=== PATIENT | female | born 1965 | race Caucasian/White ===

== ENCOUNTER → 2025-08-01 10:31 | Outpatient (REF) | payer OTHER, SELFPAY | LOC: HWRAD 10:31 | PROVIDERS: ATTENDING PHYSICIAN Hospitalist | DX: R93.89 Abnormal findings on diagnostic imaging of other specified body structures (principal); N84.0 Polyp of corpus uteri | CPT/HCPCS: 76830; 76856 ==

== ENCOUNTER 2025-09-03 06:22 | Day surgery (SDC) | payer OTHER, SELFPAY ==
[2025-08-28 09:00] LABS: Hematocrit 39.1 % (37.0-47.0); Hemoglobin 12.7 g/dL (12.0-16.0); Mean Corp Hgb Conc. 32.5 g/dL (33.0-37.0); Mean Corpuscular Volume 94.9 fL (81.0-99.0); Nucleated Red Blood Cells % 0 %; Platelet Count 376 10^3/uL (130-400); Red Cell Dist. Width 13.2 % (11.5-14.5)
[2025-08-28 09:57] LABS: Blood Urea Nitrogen 13 mg/dl (7-17); Calcium 9.5 mg/dl (8.4-10.2); Carbon Dioxide 32 mmol/L (22-30); Chloride 99 mmol/L (98-107); Glucose 83 mg/dl (70-99); Potassium 4.7 mmol/L (3.5-5.1); Sodium 137 mmol/L (135-145); eGFR > 60.00
[2025-08-28 14:37] VITALS: BMI 17.4
[2025-09-03] VITALS (8 sets, daily range): BP systolic 109–137; BP diastolic 69–77; BMI 17.0
--- NOTE | 2025-09-03 06:47 | HPS.HSE ---
Family Physician
-
Family Physician: Janel Mariano MD
Chief Complaint
-
hysteroscopy D&C
History of Present Illness
Patient is a 60yo who presents for hysteroscopy D&C with polypectomy. She was living in [facility] with her dad and going to a doctor in [facility]. She was taking HRT but was only using an estrogen patch and not taking the oral progesterone because it
caused acne. She was having a lot of bleeding and had an EMB that showed an endometrial polyp. She was supposed to get a hysteroscopy D&C with polypectomy but did not schedule due to cost. This all happened around March. She since moved to the area.
Patient saw Dr. Janel Mariano who ordered a repeat US because the US report is not legible in the transferred records. The patient is not taking HRT anymore.
PMHx: depression
Meds: venlafaxine, zolpidem, adderall
Surghx: appendectomy, D&Ex3
NKDA
Socialhx: occ etoh, denies tobacco or illicit drug use
Famhx: denies
OBHx: , ETOPx3, FT SVDx1
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
Medical History
Past Medical History
Past Medical History: Reports Psychiatric
Past Surgical History: Reports Appendectomy and Gynocological
Social History
Tobacco: Non-smoker
Alcohol: Occasional
Drug: None
Family History
Family History: Not pertinent
Allergies / Home Medications
Allergies reflects when Allergies were last updated in [facility].
Home Medications with original date entered in [facility]
Allergy/Medication List:
NKDA
Meds: venlafaxine 75mg qD, Wellbutrin XL 150mg qD
Review of Systems
-
A 12 point ROS was completed and negative except as noted: Yes
Physical Exam
Physical Exam
General: Well Developed and Well Nourished
HEENT: NormoCephalic
Respiratory: Non Labored Respirations
Cardiac: Regular Rhythm
Skin: Warm and Dry
Neuro: Awake and Alert
Psych: Calm
Laboratory Results
-
08/28/25 08:12
08/28/25 08:12
Impression/Plan
-
IMPRESSION:
Patient is a 60yo who presents for hysteroscopy D&C with polypectomy
PLAN:
- She had postmenopausal bleeding after taking unopposed estrogen. She had an EMB by a provider in [place] that showed an endometrial polyp. She was supposed to have hysteroscopy D&C with polypectomy but never did. She since moved to the area. She has
stopped taking HRT and is no longer taking unopposed estrogen. Her PMB has stopped
- Reviewed recommendation for hysteroscopy D&C with polypectomy. Risks, benefits and alternatives reviewed including bleeding, infection, damage to surrounding structures, uterine perforation and need for future surgeries. Consents signed. She was
consented for a blood transfusion in case of emergency. Aware there might not be a polyp on hysteroscopy but will do a D&C regardless
- Postop expectations and restrictions reviewed
--- NOTE | 2025-09-03 19:26 | OR.RPT ---
Operative Report
Operative Report
Procedure date: 09/03/2025
Preop diagnosis:
- Postmenopausal bleeding
- Endometrial polyp
Postop diagnosis
- Postmenopausal bleeding
Procedure
- Hysteroscopy, dilation and curettage
Surgeon: Claritza
Anesthesia: General
EBL: 5cc
Complications: none
Findings
- Normal appearing external genitalia
- Cervix without lesions or masses, retroverted uterus, no adnexal masses
- Hysteroscopic evaluation with bilateral tubal ostia visualized. Atrophic endometrium. No endometrial polyp.
Pathology: endometrial curettings
Indication:
Patient is a 60yo who presents for hysteroscopy D&C with polypectomy. She was living in [facility] with her dad and going to a doctor in [facility]. She was taking HRT but was only using an estrogen patch and not taking the oral progesterone because it
caused acne. She was having a lot of bleeding and had an EMB that showed an endometrial polyp. She was supposed to get a hysteroscopy D&C with polypectomy but did not schedule due to cost. This all happened around March. She since moved to the area.
The patient is not taking HRT anymore. Given endometrial polyp on endometrial biopsy, it was recommended to proceed with hysteroscopy, dilation and curettage with polypectomy. Risks, benefits and alternatives to the procedure were discussed and all
questions answered. Consents were signed.
Procedure:
Patient was taken to the operating room and placed under general anesthesia. She was placed in the dorsal lithotomy position with Damien type stirrups. She was prepped and draped in the normal sterile fashion. Bimanual exam revealed the
aforementioned findings. A Salazar retractor was placed in the anterior portion of the vagina and a Salazar retractor in the posterior aspect of the vagina revealing good visualization the cervix. The anterior lip of the cervix was grasped with an Allis
clamp. The uterus was sounded to 8cm. The cervix was sequentially dilated to accommodate the MyoSure hysteroscope. The hysteroscope was advanced under direct visualization. Hysteroscopic evaluation revealed the aforementioned findings. No
endometrial polyp was visualized. The hysteroscope was removed. A size 0 curette was introduced into the cervix. The uterus was curetted in a clockwise fashion until uterine cry was felt in all quadrants. Endometrial curettings were sent to
pathology for evaluation. The Allis was removed from the cervix and good hemostasis was noted. All instruments were removed from the vagina.
The patient tolerated the procedure well. All sponge and instrument counts were correct x2. She was taken to PACU in stable condition.
== END 2025-09-03 15:54 | disposition home or self-care (01) ==
LOC: SDS 06:22
PROVIDERS: ATTENDING PHYSICIAN Student in an Organized Health Care Education/Training Program; FAMILY PHYSICIAN Hospitalist
DX: N95.0 Postmenopausal bleeding (principal); N85.8 Other specified noninflammatory disorders of uterus
CPT/HCPCS: 58558; 80048; 85025; 86850; 86900; 86901; 88305; 93005

== ENCOUNTER → 2025-09-17 12:17 | Outpatient (REF) | payer OTHER, SELFPAY | LOC: HWWDC 12:17 | PROVIDERS: ATTENDING PHYSICIAN Student in an Organized Health Care Education/Training Program; FAMILY PHYSICIAN Hospitalist | DX: Z12.31 Encounter for screening mammogram for malignant neoplasm of breast (principal) | CPT/HCPCS: 77063; 77067 ==